=== PATIENT | male | born 1980 | race Caucasian/White ===

== ENCOUNTER 2018-05-18 13:44 | Emergency (ER) | payer OTHER ==
[~2018-05-18] VITALS: Ht 180.3 cm; Wt 80.3 kg
[2018-05-18 16:17] VITALS: BP 135/78
== END 2018-05-18 16:17 | disposition home or self-care (01) ==
LOC: ED 13:44
DX: S39.012A Strain of muscle, fascia and tendon of lower back, initial encounter (principal); M62.830 Muscle spasm of back; X50.0XXA Overexertion from strenuous movement or load, initial encounter; Y93.89 Activity, other specified; Y92.89 Other specified places as the place of occurrence of the external cause; Y99.0 Civilian activity done for income or pay
CPT/HCPCS: J1885